=== PATIENT | female | born 1945 | race Caucasian/White ===

== ENCOUNTER 2022-07-05 13:00 | Outpatient (RCR) | payer MEDICARE, OTHER, SELFPAY | END 2022-12-07 23:59 | disposition home or self-care (01) | PROVIDERS: PCP Family Medicine; Visit Provider Student in an Organized Health Care Education/Training Program | DX: R41.3 Other amnesia (principal); Z51.89 Encounter for other specified aftercare | CPT/HCPCS: 97165; 97535 ==

== ENCOUNTER 2023-12-25 09:00 | Outpatient (RCR) | payer MEDICARE, OTHER, SELFPAY | END 2024-04-23 23:59 | disposition home or self-care (01) | PROVIDERS: PCP Family Medicine; Visit Provider Student in an Organized Health Care Education/Training Program | DX: R26.89 Other abnormalities of gait and mobility (principal); R27.9 Unspecified lack of coordination; Z51.89 Encounter for other specified aftercare; R26.81 Unsteadiness on feet | CPT/HCPCS: 97112; 97162; 97530 ==